=== PATIENT | female | born 1985 | race Hispanic/Latino ===

== ENCOUNTER 2019-06-28 12:38 | Emergency (ER) | payer MEDICAID ==
[2019-06-28 13:00] VITALS: BP 141/79
[2019-06-28 13:47] LABS: HCG Qualitative,Urine Negative (Negative)
[2019-06-28 13:49] LABS: Bilirubin,Urine NEG (Negative); Blood,Urine SM (Negative); Color,Urine Yellow (Yellow); Mucus,Urine FEW /HPF; Urobilinogen,Urine < 2.0 mg/dL (<2.0)
[2019-06-28 13:50] LABS: WBC,Urine > 182.0 /HPF (0.0-6.0)
--- NOTE | 2019-06-28 14:09 | Emergency Department Report ---
ED Female HPI - General Chief complaint: Abdominal Pain Stated complaint: UTI Source: patient Mode of arrival: Ambulatory Limitations: No Limitations - History of Present Illness Initial comments: 33 y/o female comes in for dysuria times 4 days. History of diabetes has not able to get MD Complaint: dysuria - Related Data Previous Rx's Medication Instructions Recorded Last Taken Type Insulin NPH Human Isophane 40 unit SQ BID #3 insuln.pen 06/28/19 Unknown Rx [Humulin N Kwikpen] Insulin Regular, Human [Humulin R 20 unit SQ BID #3 insuln.pen 06/28/19 Unknown Rx U-500 Kwikpen] Nitrofurantoin [place]/M-Cryst 100 mg PO Q12HR 10 Days #20 capsule 06/28/19 Unknown Rx [Macrobid CAP] Allergies Allergy/AdvReac Type Severity Reaction Status Date / Time No Known Allergies Allergy Unverified 06/28/19 13:03 ED Review of Systems ROS: Stated complaint: UTI Other details as noted in HPI ED Past Medical Hx - Past Medical History Previous Medical History?: Yes Hx Diabetes: Yes - Surgical History Past Surgical History?: No - Social History Smoking Status: Never Smoker Substance Use Type: None - Medications Home Medications: Home Medications Medication Instructions Recorded Confirmed Last Taken Type Insulin NPH Human Isophane 40 unit SQ BID #3 insuln.pen 06/28/19 Unknown Rx [Humulin N Kwikpen] Insulin Regular, Human [Humulin R 20 unit SQ BID #3 insuln.pen 06/28/19 Unknown Rx U-500 Kwikpen] Nitrofurantoin [place]/M-Cryst 100 mg PO Q12HR 10 Days #20 capsule 06/28/19 Unknown Rx [Macrobid CAP] ED Physical Exam - General Limitations: No Limitations General appearance: alert, in no apparent distress - Head Head exam: Present: atraumatic, normocephalic - Eye Eye exam: Present: normal appearance - ENT ENT exam: Present: mucous membranes moist - Neck Neck exam: Present: normal inspection - Respiratory Respiratory exam: Present: normal lung sounds bilaterally. Absent: respiratory distress - Cardiovascular Cardiovascular Exam: Present: regular rate, normal rhythm. Absent: systolic murmur, diastolic murmur, rubs, gallop - GI/Abdominal GI/Abdominal exam: Present: soft, normal bowel sounds - Neurological Exam Neurological exam: Present: alert, oriented X3, normal gait - Psychiatric Psychiatric exam: Present: normal affect, normal mood - Skin Skin exam: Present: warm, dry, intact, normal color. Absent: rash ED Course Vital Signs 06/28/19 12:55 Temperature 98.6 F Pulse Rate 92 H Respiratory 18 Rate Blood Pressure 141/79 O2 Sat by Pulse 99 Oximetry Critical care attestation.: If time is entered above; I have spent that time in minutes in the direct care of this critically ill patient, excluding procedure time. ED Disposition Clinical Impression: UTI (urinary tract infection) Qualifiers: Hematuria presence: without hematuria Diabetes Qualifiers: Diabetes mellitus type: type 2 Disposition: DC-01 TO HOME OR SELFCARE Is pt being admited?: No Does the pt Need Aspirin: No Condition: Stable Instructions: Abdominal Pain (ED), Diabetes Mellitus Type 2 in Adults (ED) Prescriptions: Insulin NPH Human Isophane [Humulin N Kwikpen] 40 unit SQ BID #3 insuln.pen Insulin Regular, Human [Humulin R U-500 Kwikpen] 20 unit SQ BID #3 insuln.pen Nitrofurantoin [place]/M-Cryst [Macrobid CAP] 100 mg PO Q12HR 10 Days #20 capsule Referrals: PRIMARY CAREMD [Primary Care Provider] - 3-5 Days CHAPARRO NUNES MD [Staff Physician] - 3-5 Days
== END 2019-06-28 14:16 | disposition home or self-care (01) ==
LOC: ED 12:38
DX: N39.0 Urinary tract infection, site not specified (principal); E11.9 Type 2 diabetes mellitus without complications; Z79.4 Long term (current) use of insulin; Z79.899 Other long term (current) drug therapy
CPT/HCPCS: 81001; 81025; 82962; 99283

== ENCOUNTER 2020-01-31 18:26 | Emergency (ER) | payer MEDICAID ==
[2020-01-31 18:35] VITALS: BP 151/66
--- NOTE | 2020-01-31 19:14 | Emergency Department Report ---
ED General Adult HPI - General Chief complaint: Earache Stated complaint: SWOLLEN EAR POSSIBLE INSECT BITE Time Seen by Provider: 01/31/20 18:38 Source: patient Mode of arrival: Ambulatory Limitations: No Limitations - History of Present Illness Initial comments: 34-year-old -[place] female patient complains of right ear pain x3 days. Patient states the outer ear is very tender to touch and there is a sore in the area. She reports it started out as a bump and now it is scabbed over after squeezing. She rates her pain is 8/10 in severity and states Goody's powders are not helping. She denies any drainage from her ear, headache, or fever/chills/sweats. -: Sudden - Related Data Previous Rx's Medication Instructions Recorded Last Taken Type Insulin NPH Human Isophane 40 unit SQ BID #3 insuln.pen 06/28/19 Unknown Rx [Humulin N Kwikpen] Insulin Regular, Human [Humulin R 20 unit SQ BID #3 insuln.pen 06/28/19 Unknown Rx U-500 Kwikpen] Nitrofurantoin [place]/M-Cryst 100 mg PO Q12HR 10 Days #20 capsule 06/28/19 Unknown Rx [Macrobid CAP] Ibuprofen [Motrin 800 MG tab] 800 mg PO Q8HR PRN #20 tablet 01/31/20 Unknown Rx Mupirocin [Bactroban 2% OINT] 1 applic TP TID 10 Days #1 tube 01/31/20 Unknown Rx cephALEXin [Keflex] 500 mg PO Q8HR 7 Days #21 cap 01/31/20 Unknown Rx Allergies Allergy/AdvReac Type Severity Reaction Status Date / Time apple Allergy Rash Verified 01/31/20 18:34 ED Review of Systems ROS: Stated complaint: SWOLLEN EAR POSSIBLE INSECT BITE Other details as noted in HPI Constitutional: denies: chills, fever, malaise Eyes: eye pain Respiratory: denies: cough Cardiovascular: denies: chest pain Skin: denies: rash Neurological: denies: headache ED Past Medical Hx - Past Medical History Previous Medical History?: Yes Hx Diabetes: Yes - Surgical History Past Surgical History?: Yes Additional Surgical History: x 3 - Social History Smoking Status: Never Smoker Substance Use Type: None - Medications Home Medications: Home Medications Medication Instructions Recorded Confirmed Last Taken Type Insulin NPH Human Isophane 40 unit SQ BID #3 insuln.pen 06/28/19 Unknown Rx [Humulin N Kwikpen] Insulin Regular, Human [Humulin R 20 unit SQ BID #3 insuln.pen 06/28/19 Unknown Rx U-500 Kwikpen] Nitrofurantoin [place]/M-Cryst 100 mg PO Q12HR 10 Days #20 capsule 06/28/19 Unknown Rx [Macrobid CAP] Ibuprofen [Motrin 800 MG tab] 800 mg PO Q8HR PRN #20 tablet 01/31/20 Unknown Rx Mupirocin [Bactroban 2% OINT] 1 applic TP TID 10 Days #1 tube 01/31/20 Unknown Rx cephALEXin [Keflex] 500 mg PO Q8HR 7 Days #21 cap 01/31/20 Unknown Rx ED Physical Exam - General Limitations: No Limitations General appearance: alert, in no apparent distress - Head Head exam: Present: atraumatic, normocephalic - Eye Eye exam: Present: normal appearance - ENT ENT exam: Present: mucous membranes moist, TM's normal bilaterally, other (Tender small swollen scabbed region noted to right ear near pinna; no active drainage is noted) - Neck Neck exam: Present: normal inspection, full ROM. Absent: lymphadenopathy - Respiratory Respiratory exam: Absent: respiratory distress - Cardiovascular Cardiovascular Exam: Present: regular rate - Back Exam Back exam: Present: full ROM - Neurological Exam Neurological exam: Present: alert, oriented X3 - Psychiatric Psychiatric exam: Present: normal affect, normal mood - Skin Skin exam: Present: warm, dry. Absent: rash ED Course Vital Signs 01/31/20 18:35 Temperature 98.0 F Pulse Rate 82 Respiratory 18 Rate Blood Pressure 151/66 O2 Sat by Pulse 100 Oximetry ED Medical Decision Making - Medical Decision Making 34-year-old -[place] female patient complains of right ear pain x3 days. Patient states the outer ear is very tender to touch and there is a sore in the area. She reports it started out as a bump and now it is scabbed over after squeezing. She rates her pain is 8/10 in severity and states Goody's powders are not helping. She denies any drainage from her ear, headache, or fever/chills/sweats. Small infected area noted to the right pinna on exam. Will treat with Bactroban and Keflex. Discussed wound care and strict return precautions in detail with patient who verbalized understanding. Patient follow-up with primary care in 3 days for recheck. Critical care attestation.: If time is entered above; I have spent that time in minutes in the direct care of this critically ill patient, excluding procedure time. ED Disposition Clinical Impression: Infection of right ear Disposition: DC- TO HOME OR SELFCARE Is pt being admited?: No Condition: Stable Instructions: Impetigo, Adult Prescriptions: Mupirocin [Bactroban 2% OINT] 1 applic TP TID 10 Days #1 tube cephALEXin [Keflex] 500 mg PO Q8HR 7 Days #21 cap Ibuprofen [Motrin 800 MG tab] 800 mg PO Q8HR PRN #20 tablet PRN Reason: pain Referrals: [facility] [Provider Group] - 3-5 Days
== END 2020-01-31 20:00 | disposition home or self-care (01) ==
LOC: ED 18:26
DX: H92.01 Otalgia, right ear (principal); E11.9 Type 2 diabetes mellitus without complications; Z79.899 Other long term (current) drug therapy; Z91.018 Allergy to other foods
CPT/HCPCS: 99281

== ENCOUNTER 2021-06-15 06:10 | Emergency (ER) | payer MEDICAID ==
[2021-06-15 08:15] VITALS: BP 148/81
[2021-06-15] MEDS ORDERED: oxyCODONE /ACETAMINOPHEN 5-325MG TAB PO ONE (08:32)
[2021-06-15] MEDS ORDERED: KETOROLAC 10 MG TAB PO ONE (08:32)
[2021-06-15] MEDS ORDERED: SULFAMETHOXAZOLE/TRIMETHOPRIM 800/160MG DS TAB PO ONE (08:32)
--- NOTE | 2021-06-15 09:09 | XRay Report ---
LEFT FINGER(S) 3 VIEW(S) INDICATION / CLINICAL INFORMATION: injury, pain and swelling. COMPARISON: None available. FINDINGS: BONES / JOINT(S): No acute fracture or subluxation. No significant arthritis. SOFT TISSUES: Soft tissue swelling of the long finger. ADDITIONAL FINDINGS: None. IMPRESSION: 1. Soft tissue swelling of the long finger without fracture identified. Signer Name: Raymond Cheney MD Signed: 06/15/2021 9:04 AM Workstation Name: [id number]
--- NOTE | 2021-06-15 09:20 | Emergency Department Report ---
- General Chief complaint: Extremity Injury, Upper Stated complaint: LT MIDDLE FINGER INJURY Time Seen by Provider: 06/15/21 08:18 Source: patient Mode of arrival: Ambulatory Limitations: No Limitations - History of Present Illness Initial comments: 35-year-old black female with a past medical history of diabetes presents to the emergency department for evaluation of worsening pain and swelling to left middle finger. She states that pain and swelling initially started to fingertip 7 days ago, and she was seen at urgent care on June 10 and started on Keflex. She states that since then pain and swelling has worsened and then she hit her finger on the door 2 days ago and she noted purulent drainage from area but pain and swelling continued to worsen. She denies fever, nausea, vomiting, abdominal pain. MD complaint: abscess/boil -: days(s) Tetanus Up to Date: yes (7) Location: L hand (Left middle finger) Severity: severe Severity scale (0 -10): 10 Quality: aching Consistency: constant Worsens with: movement Context: recent antibiotic Associated symptoms: denies other symptoms Treatments Prior to Arrival: antibiotic - Related Data Previous Rx's Medication Instructions Recorded Last Taken Type Insulin NPH Human Isophane 40 unit SQ BID #3 insuln.pen 06/28/19 Unknown Rx [Humulin N Kwikpen] Insulin Regular, Human [Humulin R 20 unit SQ BID #3 insuln.pen 06/28/19 Unknown Rx U-500 Kwikpen] Nitrofurantoin [place]/M-Cryst 100 mg PO Q12HR 10 Days #20 capsule 06/28/19 Unknown Rx [Macrobid CAP] Ibuprofen [Motrin 800 MG tab] 800 mg PO Q8HR PRN #20 tablet 01/31/20 Unknown Rx Mupirocin [Bactroban 2% OINT] 1 applic TP TID 10 Days #1 tube 01/31/20 Unknown Rx cephALEXin [Keflex] 500 mg PO Q8HR 7 Days #21 cap 01/31/20 Unknown Rx Naproxen [Naprosyn] 500 mg PO BID #14 tab 06/15/21 Unknown Rx Sulfamethoxazole/Trimethoprim 1 each PO BID #14 tab 06/15/21 Unknown Rx [Bactrim DS TAB] Allergies Allergy/AdvReac Type Severity Reaction Status Date / Time apple Allergy Rash Verified 01/31/20 18:34 Abscess Boil HPI - HPI Chief Complaint: Extremity Injury, Upper Stated Complaint: LT MIDDLE FINGER INJURY Time Seen by Provider: 06/15/21 08:18 Home Medications: Previous Rx's Medication Instructions Recorded Last Taken Type Insulin NPH Human Isophane 40 unit SQ BID #3 insuln.pen 06/28/19 Unknown Rx [Humulin N Kwikpen] Insulin Regular, Human [Humulin R 20 unit SQ BID #3 insuln.pen 06/28/19 Unknown Rx U-500 Kwikpen] Nitrofurantoin [place]/M-Cryst 100 mg PO Q12HR 10 Days #20 capsule 06/28/19 Unknown Rx [Macrobid CAP] Ibuprofen [Motrin 800 MG tab] 800 mg PO Q8HR PRN #20 tablet 01/31/20 Unknown Rx Mupirocin [Bactroban 2% OINT] 1 applic TP TID 10 Days #1 tube 01/31/20 Unknown Rx cephALEXin [Keflex] 500 mg PO Q8HR 7 Days #21 cap 01/31/20 Unknown Rx Naproxen [Naprosyn] 500 mg PO BID #14 tab 06/15/21 Unknown Rx Sulfamethoxazole/Trimethoprim 1 each PO BID #14 tab 06/15/21 Unknown Rx [Bactrim DS TAB] Allergies/Adverse Reactions: Allergies Allergy/AdvReac Type Severity Reaction Status Date / Time apple Allergy Rash Verified 01/31/20 18:34 ED Review of Systems ROS: Stated complaint: LT MIDDLE FINGER INJURY Other details as noted in HPI Comment: All other systems reviewed and negative Constitutional: denies: chills, fever Respiratory: denies: cough, shortness of breath Cardiovascular: denies: chest pain, palpitations, dyspnea on exertion, orthopnea, edema, syncope, paroxysmal nocturnal dyspnea Gastrointestinal: denies: abdominal pain, nausea, vomiting Musculoskeletal: denies: back pain Neurological: denies: headache ED Past Medical Hx - Past Medical History Previous Medical History?: Yes Hx Diabetes: Yes - Surgical History Past Surgical History?: Yes Additional Surgical History: x 3 - Social History Smoking Status: Current Every Day Smoker Substance Use Type: Alcohol, Prescribed - Medications Home Medications: Home Medications Medication Instructions Recorded Confirmed Last Taken Type Insulin NPH Human Isophane 40 unit SQ BID #3 insuln.pen 06/28/19 Unknown Rx [Humulin N Kwikpen] Insulin Regular, Human [Humulin R 20 unit SQ BID #3 insuln.pen 06/28/19 Unknown Rx U-500 Kwikpen] Nitrofurantoin [place]/M-Cryst 100 mg PO Q12HR 10 Days #20 capsule 06/28/19 Unknown Rx [Macrobid CAP] Ibuprofen [Motrin 800 MG tab] 800 mg PO Q8HR PRN #20 tablet 01/31/20 Unknown Rx Mupirocin [Bactroban 2% OINT] 1 applic TP TID 10 Days #1 tube 01/31/20 Unknown Rx cephALEXin [Keflex] 500 mg PO Q8HR 7 Days #21 cap 01/31/20 Unknown Rx Naproxen [Naprosyn] 500 mg PO BID #14 tab 06/15/21 Unknown Rx Sulfamethoxazole/Trimethoprim 1 each PO BID #14 tab 06/15/21 Unknown Rx [Bactrim DS TAB] ED Physical Exam - General Limitations: No Limitations General appearance: alert, in no apparent distress - Head Head exam: Present: atraumatic, normocephalic - Eye Eye exam: Present: normal appearance. Absent: conjunctival injection - Neck Neck exam: Present: normal inspection. Absent: tenderness, lymphadenopathy - Respiratory Respiratory exam: Present: normal lung sounds bilaterally. Absent: respiratory distress, wheezes, rales, rhonchi, stridor, chest wall tenderness - Cardiovascular Cardiovascular Exam: Present: regular rate, normal heart sounds - GI/Abdominal GI/Abdominal exam: Present: soft, normal bowel sounds. Absent: distended, tenderness, guarding, rebound, rigid - Expanded Upper Extremity Exam Left Hand Wrist exam: Present: tenderness (Left middle finger), swelling, abrasion (Pad of left middle finger), erythema (Entire left middle finger). Absent: normal inspection (Erythema and edema noted to entire left middle finger with abrasion with some purulent drainage noted to pad of left middle finger.), full ROM, deformity, nail avulsion, subungual hematoma Hand L/R Front: 1 - Positive: abrasion. Negative: normal inspection (Swelling and erythema noted area not fluctuant), laceration, nail injury (#), foreign body, amputation, avulsion Hand L/R Back: 1 - Erythema and swelling noted. Area not fluctuant Vascular: Present: normal capillary refill, radial pulse. Absent: vascular compromise, pulse deficit radial art - Back Exam Back exam: Present: normal inspection - Neurological Exam Neurological exam: Present: alert, oriented X3, normal gait - Psychiatric Psychiatric exam: Present: normal affect, normal mood - Skin Skin exam: Present: warm, dry, intact, normal color ED Course Vital Signs 06/15/21 08:11 Temperature 97.6 F Pulse Rate 80 Respiratory 20 Rate Blood Pressure 148/81 O2 Sat by Pulse 98 Oximetry - I & D Left Finger Type of Procedure: Simple Site: Left middle finger Blade Size: 18-gauge needle I & D Procedure: betadine prep Progress: After digital block and cleaning with Betadine, 18-gauge needle inserted to pad of finger and finger was expressed for small amount of serosanguineous drainage. Patient tolerated well. - Nerve Block Consent Obtained: verbal consent Time Out Performed: Yes Local Anesthetic Used: Lidocaine 1% Amount of anesthesia used: 3 Side: left Nerve Blocks: digital (Left middle finger) Procedure Successful: Yes Complications: none Patient Tolerated Procedure: well Additional Comments: Digital block performed on left middle finger for pain control and to allow for provider to express purulent drainage from abrasion area. ED Medical Decision Making - Medical Decision Making 35-year-old black female with a past medical history of diabetes presents to the emergency department for evaluation of worsening pain and swelling to left middle finger. She states that pain and swelling initially started to fingertip 7 days ago, and she was seen at urgent care on June 10 and started on Keflex. She states that since then pain and swelling has worsened and then she hit her finger on the door 2 days ago and she noted purulent drainage from area but pain and swelling continued to worsen. She denies fever, nausea, vomiting, abdominal pain. Left finger x-ray performed secondary to patient's concern over hitting finger on the door and having significant increase in pain and swelling. Left finger x-ray without any acute abnormalities noted. I&D performed on feline of left middle finger after digital block, patient tolerated well. Patient is advised to stop use of Keflex and start Bactrim and naproxen. She is advised to complete medication and follow-up with primary care provider if no improvement or worsening symptoms. Patient was advised that healing of feline was dependent on maintaining control of blood sugar, and she verbalized understanding. Plan of care reviewed with patient she verbalized understanding of and agreement with. Critical care attestation.: If time is entered above; I have spent that time in minutes in the direct care of this critically ill patient, excluding procedure time. ED Disposition Clinical Impression: Felon of finger of left hand Disposition: HOME / SELF CARE / HOMELESS Is pt being admited?: No Does the pt Need Aspirin: No Condition: Stable Instructions: Cellulitis, Adult, [id number], Fingertip Infection Additional Instructions: Take medications as prescribed. Follow-up with primary care provider if no improvement or worsening symptoms. Prescriptions: Sulfamethoxazole/Trimethoprim [Bactrim DS TAB] 1 each PO BID #14 tab Naproxen [Naprosyn] 500 mg PO BID #14 tab Referrals: ELIZABETH ORDONEZ MD [Referring] - 3-5 Days Forms: Work/School Release Form(ED) Time of Disposition: 09:19
== END 2021-06-15 09:34 | disposition home or self-care (01) ==
LOC: ED 06:10
DX: L03.012 Cellulitis of left finger (principal); E11.9 Type 2 diabetes mellitus without complications; Z98.890 Other specified postprocedural states; F17.200 Nicotine dependence, unspecified, uncomplicated; Z91.02 Food additives allergy status
CPT/HCPCS: 99283